=== PATIENT | female | born 1990 | race African-American/Black ===

== ENCOUNTER 2021-10-25 18:43 | Emergency (ER) | payer OTHER, SELFPAY | END 2021-10-25 19:15 | disposition home or self-care (01) | LOC: ERS 18:43 | DX: S06.0X0A Concussion without loss of consciousness, initial encounter (principal); L30.1 Dyshidrosis [pompholyx]; X58.XXXA Exposure to other specified factors, initial encounter | CPT/HCPCS: 99283 ==